=== PATIENT | male | born 1970 ===

== ENCOUNTER 2018-06-07 01:54 | Emergency (ER) | payer SELFPAY ==
[2018-06-07 02:05] VITALS: BMI 25.8
[2018-06-07 02:09] VITALS: TEMP 98.6; O2SAT 99
--- NOTE | 2018-06-07 02:17 | ED PDOC ---
HPI: General Adult Time Seen by Provider: 06/07/18 02:08 Chief Complaint (Nursing): Medical Clearance Chief Complaint (Provider): Medical Clearance History Per: Patient, Other ([place] [employer]) History/Exam Limitations: no limitations Additional Complaint(s): 47 year old male presents to the ED under police custody prior to incarceration for medical and psychiatric clearance. Patient denies any current complaints but notes he has chronic back pain and hypertension, neither of which he is on medication for. PMD: none provided Past Medical History Reviewed: Historical Data, Nursing Documentation, Vital Signs Vital Signs: Last Vital Signs Temp 98.6 F 06/07/18 02:05 Pulse 121 H 06/07/18 02:05 Resp 18 06/07/18 02:05 BP 164/97 H 06/07/18 02:05 Pulse Ox 99 06/07/18 02:05 - Medical History PMH: Back Problems, HTN - Family History Family History: States: Unknown Family Hx - Immunization History Hx Influenza Vaccination: No - Home Medications Home Medications: Ambulatory Orders Medication Instructions Recorded RX: No Known Home Med 11/17/15 - Allergies Allergies/Adverse Reactions: Allergies Allergy/AdvReac Type Severity Reaction Status Date / Time No Known Allergies Allergy Verified 06/07/18 02:05 Review of Systems ROS Statement: Except As Marked, All Systems Reviewed And Found Negative Musculoskeletal: Positive for: Back Pain (chronic) Physical Exam - Reviewed Nursing Documentation Reviewed: Yes Vital Signs Reviewed: Yes - Physical Exam Appears: Positive for: No Acute Distress Head Exam: Positive for: ATRAUMATIC, NORMOCEPHALIC Skin: Positive for: Normal Color, Warm, Dry Eye Exam: Positive for: Normal appearance, EOMI, PERRL ENT: Positive for: Normal ENT Inspection Neck: Positive for: Normal, Painless ROM, Supple Cardiovascular/Chest: Positive for: Tachycardia Respiratory: Positive for: Normal Breath Sounds. Negative for: Respiratory Distress Gastrointestinal/Abdominal: Positive for: Normal Exam, Soft. Negative for: Tenderness Back: Positive for: Normal Inspection Extremity: Positive for: Normal ROM Neurologic/Psych: Positive for: Alert, Oriented (x3) - ECG O2 Sat by Pulse Oximetry: 99 (RA) Pulse Ox Interpretation: Normal Medical Decision Making Medical Decision Making: Time: 211 Initial Impression: 47 year old male presenting for medical and psychiatric clearance Initial Plan: --Crisis evaluation --Tylenol 650mg PO 0221 Patient's heart rate improved to regular rate and rhythm, stable for discharge for incarceration as medically and psychiatrically cleared, as per this provider and [employer] respectively. Scribe Attestation: Documented by May Rodriguez, acting as a scribe for Alberto Elkins MD. Provider Scribe Attestation: All medical record entries made by the Scribe were at my direction and personally dictated by me. I have reviewed the chart and agree that the record accurately reflects my personal performance of the history, physical exam, medical decision making, and the department course for this patient. I have also personally directed, reviewed, and agree with the discharge instructions and disposition. Disposition - Clinical Impression Clinical Impression: Examination, medicolegal, Adjustment disorder - Patient ED Disposition Is Patient to be Admitted: No - Disposition Disposition: Discharged/Transfer to Law Enforcement Disposition Time: 05:00 Condition: STABLE Additional Instructions: Patient is medically and psychiatrically stable for incarceration Instructions: General (DC) Forms: [facility] (Uz[place])
[2018-06-07 02:34] VITALS: BP 144/84; PULSE 94; RESP 16
== END 2018-06-07 02:35 ==
LOC: H.ER 01:54
DX: F43.20 Adjustment disorder, unspecified